=== PATIENT | female | born 1995 | race Caucasian/White ===

== ENCOUNTER 2016-02-24 23:31 | Observation (INO) | payer OTHER ==
[~2016-02-24] VITALS: Ht 160 cm; Wt 57.0 kg
[~2016-02-24 23:31] MED LIST: MESA1.2T2 PO; NORE-96 PO
[2016-02-25] VITALS (10 sets, daily range): BP systolic 86–134; BP diastolic 42–89; PULSE 92–134; RESP 16–24; O2SAT 97–100
[2016-02-25] MEDS ORDERED: Dexamethasone 4 mg/mL Inj ONE (01:18)
[2016-02-25] MEDS ORDERED: Ondansetron 2 mg/mL 2 mL Inj ONE (01:18)
[2016-02-25] MEDS ORDERED: fentaNYL-PF 50 mCg/mL 2 mL Inj ONE ×2 (01:18→21:20)
[2016-02-25] MEDS ORDERED: Propofol 10,000 mCg/mL 20 mL Inj ONE (01:18)
[2016-02-25] MEDS ORDERED: Ketamine 10 mg/mL 20 mL Inj ONE (01:18)
[2016-02-25] MEDS ORDERED: Ondansetron 2 mg/mL 2 mL Inj IVPUSH PRN ×3 (01:45→21:20)
[2016-02-25] MEDS: 0.9% Sodium Chloride 1,000 ML IV SCH ×4 (02:27→16:01)
[2016-02-25 03:26] LABS: APPEARANCE,URINE CLEAR (CLEAR,HAZY); COLOR,URINE YELLOW (YELLOW); OCCULT BLOOD,URINE TRACE (NEGATIVE); UROBILINOGEN,URINE NORMAL (NORMAL)
--- NOTE | 2016-02-25 05:51 | HP ---
[address] [address] HISTORY AND PHYSICAL PATIENT: LETY LIZAMA : 1995 MR#: [id number] ADMIT: 02/25/2016 JOB ID: [id number] DATE OF ADMISSION: 02/25/2016 PRIMARY CARE PROVIDER: Reema Crockett MD. CHIEF COMPLAINT: Fevers, right-sided mid abdominal pain. HISTORY OF PRESENT ILLNESS: This is a 20-year-old female, who presented to [facility] today with right mid to lower quadrant abdominal pain. She recently was diagnosed with a renal stone at [facility] ED, February 01. It was thought to be a 2 mm stone. She had been straining her urine since then, and had not found any. Currently she notes she was having some urinary urgency since that period of time, denied urinary frequency, denied dysuria. Saturday, she developed some abdominal pain. She had some mild nausea then, has had no nausea or vomiting since then, and today noticed a fever of 101.3 degrees and presented to the emergency department at [facility]. Her evaluation there includes a temperature of 37.6. She had a urine hCG which was negative. UA showed trace leukocyte esterase, trace protein, 1+ ketones, 1+ blood, WBCs 31-40, RBCs 4-5, bacteria 2+. White count was 10.3, BUN was 8, creatinine 0.73. Lactic acid was 0.7. She also was given 2 g of IV Rocephin in the emergency department there for possible pyelonephritis. She also had a CT of abdomen without contrast done on February 01, which revealed a small 2 x 4 mm stone in the distal right ureter, mild right hydronephrosis and hydroureter were noted, punctate calcifications renal hilar bilaterally consistent with tiny nonobstructive renal calculi. She today had a CT of abdomen and pelvis with IV contrast and this was read by Radiology as showing fluid collection in the right lower quadrant adjacent to the tip of the cecum in the expected region of right adnexa which has peripheral enhancement and internal air. Lesion is suspicious for either abscess related to a ruptured appendix or tubal ovarian abscess. There also appeared to be focal areas of striated enhancement in the right kidney suspicious for pyelonephritis. Dr. Ramos, ED doctor, [facility], contacted Dr. Wilson, General Surgery here at [facility], who recommended a pelvic ultrasound and transfer for further evaluation here to [facility]. PAST MEDICAL HISTORY: 1. History of ulcerative colitis, is followed by commodity supervisor, Dr. Jordan , out of [facility]. The patient has had no flares x1 year. 2. Recent diagnosis of distal right 2 mm ureteral stone. MEDICATIONS: Upon admission: 1. Lialda for ulcerative colitis. 2. control pills. 3. Hydrocodone 5/325, 1 tab p.o. q.6 h. p.r.n. pain. ALLERGIES: No known drug allergies. SOCIAL HISTORY: Smoking never. alcohol none. FAMILY MEDICAL HISTORY: No history of cardiac disease, GI disease. REVIEW OF SYSTEMS: All review of systems are reviewed and are negative except for as noted in HPI. Also patient has had normal bowel movements. PHYSICAL EXAMINATION: Temperature 37.1, heart rate 107, respiratory rate 18, blood pressure 106/72, room air sat 97%. Constitutional: Young woman, in mild pain and distress. Head: Normocephalic, atraumatic. Eyes: PERRLADC. EOMI. Mouth: No lesions. Neck: No adenopathy. Chest is clear to auscultation. Cor: Regular rate and rhythm. S1, S2 without murmur. Abdomen is soft. There is tenderness in the right upper to mid abdomen. No flank tenderness. Bowel sounds are present. Extremity exam reveals no pedal edema. Skin reveals no rashes. Psych: Mood and affect are appropriate. Neuro: Alert and oriented x3. Motor strength is intact bilaterally. LABORATORIES: As above. Also, to include and again these were done at [facility]: Sodium 137, potassium 3.7, chloride 102, bicarb 24, glucose 86, BUN 8, creatinine 0.73. Total protein 7.3, albumin 3.3, calcium 8.8, total bili 0.5, alkaline phosphatase 47, ALT 15, AST 13, lipase 167. Hematocrit 38.4, MCV 83.8, platelets 147 with 78% polys and 12% lymphs. ASSESSMENT AND PLAN: 1. Pyelonephritis,present on admit,acute. Continue with IV Rocephin. Await culture report. Did order a UA micro and culture if indicated here. We will also check blood cultures if has fevers. Morphine IV p.r.n. pain. 2. Abnormal CAT scan with finding of possible appendiceal disease versus tubo-ovarian abscess,present on admit,acute We will recheck blood counts in the a.m. Dr. Wilson, General Surgery, is aware of this patient. We will order abdominal and pelvic ultrasound. We will make n.p.o. except meds in case surgical procedure is planned. 3. History of ulcerative colitis,present on admit,chronic Currently appears quiescent at this point in time. We will continue patient's medication. 4. Deep venous thrombosis prophylaxis, SCDs. CODE STATUS: The patient is FULL CODE. TIME SPENT: 60 minutes. [facility]
--- NOTE | 2016-02-25 06:45 | NUR ---
Admit Admitted from [facility] via EMS. Able to ambulate on arrival. RA without SOB. Denies CP or discomfort. NPO but denies issues with PO intake other than decreased appetite over last couple of days. Denies issues with voiding or bowel movements with last BM reported on 02/23. 07/04 RLQ abd pain reported which she states is worse with touch and activity. Offered prn pain rx but patient states pain is tolerable currently. NS @ 150ml/hr initiated per orders. Personal belongings at bedside per patient request. Educated flight operation coordinator light use with return demonstration.
[2016-02-25] MEDS: cefTRIAXone Inj 2,000 MG in IV Premix 1 EACH IV SCH (08:20)
[2016-02-25 08:23] LABS: BASOPHILS % (AUTO) 0.1 % (0-3); EOSINOPHILS % (AUTO) 0.6 % (0-5); MONOCYTES % (AUTO) 12.6 % (4-12); Mean Corpuscular Hemoglobin 27.4 pg (27.0-35.0); Mean Corpuscular Volume 85.6 fL (81-100); NEUTROPHILS % (AUTO) 71.2 % (40-74); Platelet Count 139 bil/L (150-400)
--- NOTE | 2016-02-25 10:15 | DRSVH ---
PROCEDURE: US ABDOMEN ([id number]) INDICATIONS: 20 year-old female with right abdominal pain. TECHNIQUE: Real-time scanning was performed of the abdominal and retroperitoneal organs, with image documentatio n. COMPARISON: [facility], CT, CT ABDOMEN PELVIS W CONTRAST, 02/24/2016, 9:32 PM. [facility], CT, CT ABDOMEN PELVIS WO CONTRAST, 02/02/2016, 1:24 PM. FINDINGS: Liver: Liver is normal in size and homogeneous in echotexture. Gallbladder: No gallstones or biliary sludge. Gallbladder wall thickness is normal. No pericholecyst ic fluid. Biliary ducts: Intrahepatic bile ducts are non-dilated. Extrahepatic bile duct caliber measures 2.7 mm. Normal is 6-7 mm or less in diameter, or 10 mm or less post-cholecystectomy. Pancreas: Visualized portions of the pancreas are sonographically normal. Spleen: Spleen is upper normal in size and homogeneous in echotexture. Kidneys: Kidneys are normal in size and echotexture. Right kidney measures 10.5 cm long; left kidne y measures 10.4 cm long. No hydronephrosis or nephrolithiasis. No solid masses. Aorta: Visualized aorta is normal in caliber at less than 3 cm. Iliacs: Proximal common iliac arteries are normal in caliber at less than 2.5 cm. IVC: Intrahepatic inferior vena cava is patent. Miscellaneous: No free abdominal fluid. The appendix appears normal in size and morphology transabdo minally. The appendix is unable to be visualized. IMPRESSION: No sonographic explanation for abdominal pain. The ovary appears normal in size, and ther efore tubo-ovarian abscess is considered unlikely. Dictated by: Loc Barkley M.D. on 02/25/2016 at 10:13 Approved by: Loc Barkley M.D. on 02/25/2016 at 10:13
--- NOTE | 2016-02-25 16:58 | CONS ---
[address] [address] CONSULTATION REPORT PATIENT: LETY LIZAMA : 1995 MR#: [id number] ADMIT: 02/25/2016 JOB ID: [id number] DATE OF SERVICE: 02/25/2016 CHIEF COMPLAINT: Abdominal pain. REQUESTING PHYSICIAN: This consultation was requested by Dr. Jimenez. HISTORY OF PRESENT ILLNESS: This is a 20-year-old woman who presented to the emergency department in [place] last night. She has a recent history of kidney stones on the right. A CT scan of the abdomen was performed showing findings consistent with right-sided pyelonephritis, and also a 5 x 2 cm fluid collection near the ovary and cecum. The appendix was not easily visualized and the fluid collection was thought to be either due to appendicitis or to a tubo-ovarian abscess. She was transferred to this facility. An abdominal ultrasound was ordered to help clarify the question of whether it was associated with the ovary, but this appeared normal, and therefore tubo-ovarian abscess was considered unlikely. White blood cell count was normal at [place] and was 9.3 on admission to this facility. She was given a dose of ceftriaxone this morning. I was asked to evaluate her for possible appendicitis. PAST MEDICAL HISTORY: 1. Ulcerative colitis, well controlled on Lialda which is prescribed by Dr. Renteria of gastroenterology. 2. Recent diagnosis of a distal right 2 mm ureteral stone. PAST SURGICAL HISTORY: None. MEDICATIONS: Lialda and control. ALLERGIES: No known drug allergies. FAMILY HISTORY: No history of cardiac disease. SOCIAL HISTORY: She has never been a smoker and does not drink alcohol. REVIEW OF SYSTEMS: Eleven point review of systems is negative except as noted in the HPI. PHYSICAL EXAMINATION: Vital signs: Temperature 36.5, heart rate 96, blood pressure 106/70, saturation 100% on room air, respiratory rate of 18. General: Awake, alert. No acute distress. Head: Normocephalic. Neck: Supple. Cardiac: Regular rate and rhythm. No murmurs, rubs, or gallops. Respiratory: Clear auscultation bilaterally. Abdomen: Soft. Tender in the right lower quadrant upon palpation of McBurney's point. Mild tenderness in the right upper quadrant. There is no costophrenic angle tenderness bilaterally. No rebound or guarding. Her abdomen is flat. Extremities: No edema. Psychiatric: Normal cognition and judgment. LABORATORY: White blood cell count is 9.3, hematocrit 34, platelets 159. Comprehensive metabolic panel is within normal limits with the exception of an albumin of 2.9. ASSESSMENT: A 20-year-old woman with a right lower quadrant fluid collection near the probable location of the appendix, most consistent with appendicitis on overall clinical picture based on a combination of findings on physical exam, CT scan, ultrasound, and physical examination. RECOMMENDATIONS: I recommend laparoscopic appendectomy. I consented the patient to the risks including infection, bleeding, injury to surrounding structures, and negative appendectomy; i.e., the possibility that appendicitis is not the cause of the findings seen on CT scan. She understands all of the above and elects to proceed.
[2016-02-25] MEDS ORDERED: Lactated Ringer's 1,000 ML IV ONE (17:30)
--- NOTE | 2016-02-25 17:31 | PCM.HPANE ---
Patient Data Surgeon Admitting Provider:Mary Jimenez MD Attending Provider:Mary Jimenez MD Primary Care Physician:Reema Crockett MD Other Provider:Hair Jalloh Anesthesia Reason for Visit Pyelonephritis, Rule Out Appy Ht/WT & BMI Height (Feet): 5 Height (Inches): 3.00 Weight (Kilograms): 57.300 Body Mass Index 22.38 Allergies Coded Allergies: No Known Drug Allergies (Verified Allergy, 02/10/13) Past Anesthesia History Anesthesia History: Denies:: Abnormal Airway, Anesthesia Reactions, Difficult Intubation, Fam Anesthesia Reaction, Fam Malignant Hypertherm, Malignant Hyperthermia Diabetes History Hx Diabetes?: No MRSA MRSA: No Medications Hypertension Medication: No Home Meds Incl Beta Darrin: No Reported Medications Norethindrone A-E Estradiol (Loestrin)1 Each Tablet1 Each PO DAILY #1 PKG Ref 0 03/08/15 Mesalamine (Lialda)1.2 Gm Tablet.dr1.2 Gm PO DAILY 2 tabs daily with a meal 03/08/15 History History of ENT Problems?: No HEENT History: Denies:: Abnormal Airway Difficult Intubation Dysphagia Hearing Problem Hx of Heart Problems?: No Cardiovascular History: Denies:: AICD Atrial Fibrillation Chest Pain Hypertension Pacemaker Valvular Heart Disease Hx of Respiratory Problem?: No Respiratory History: Denies:: Asthma COPD Cough Hemoptysis Pneumonia Tuberculosis Hx Neurologic Problems?: No Neurological History: Denies:: CVA Hx of GI Problems?: Yes Gastrointestinal History: Positive for:: Rectal Bleeding Denies:: Cirrhosis Diverticulitis Gastroesphageal Reflux Hiatal Hernia Other GI Pertinent History: Ulcerative colitis Hx of Problems?: Yes Genitourinary History: Positive for:: Kidney Stones Urinary Tract Infection Denies:: HX of Hemodialysis HX of Peritoneal Dialysis: No Female Hx: Denies:: Currently Endometriosis Pelvic Inflammatory Problems with Breasts? Hx Musculoskeletal Problems?: No Musculoskeletal History: Denies:: Joint Replacement Hx of Psycho/Social Problems?: No Psycho Social History: Denies:: Anxiety Hx Depression Hx Surgeries?: No Hx Any Other Health Problems?: No History Blood Transfusions: Positive for:: Accept Blood Products? Denies:: Blood Transfusions Hx Diabetes: No Hx Alcohol Use: NoHx Substance Use: No Smoking Status: Never Smoker Stop/Bang Treated for Sleep Apnea?: No Do You Have a CPAP Machine?: No S-Snoring: Do You Snore Loudly: No T-Tired: feel tired, fatigued: No O-Obsered: Observed not breath: No P-Blood Pressure: treated: No B- Body Mass Index > 35 kg/m2: No A- Age over 50: No N- Neck Large Circumference: No G- Gender Male: No MARTA Total Score: 0 MARTA Risk Assessment: Low Risk, <3 Yes Risk Assessment Category Category 1A: Patient has history of documented sleep apnea, and HAS NOT received any narcotic, sedative or anesthesia administration during this stay. Category 1B: Patient has history of documented sleep apnea, and HAS received any narcotic , sedative or anesthesia administration during this stay Category 2: Patient has SUSPECTED Obstructive Sleep Apnea, and HAS received any narcotic , sedative or anesthesia administration during this stay. Category 3: Patient has SUSPECTED Obstructive Sleep Apnea and HAS NOT received narcotic, sedative or anesthesia administration during this stay. Category 4: Outpatient in Procedural Areas with known sleep apnea or who screen positive for High Risk via the STOP/BANG questionnaire. Exam Exam Vital Signs Vital Signs Date Time Temp Pulse Resp B/P Pulse Ox O2 Delivery O2 Flow Rate FiO2 02/25/16 15:06 36.5 96 18 106/70 100 Room Air 02/25/16 09:51 36.7 92 86/42 General Appearance: Alert, Oriented X3, Cooperative, No Acute Distress HEENT/AIRWAY: MP 2 Lungs: Clear to Auscultation, Normal Air Movement Heart: Exam Unremarkable, Regular Rate/Rhythm, No Murmurs/Rubs/Gallops Meds/Labs/Diagnostics Admission Meds Current Medications Sodium Chloride 1,000 ml @ 150 mls/hr Q6H40M IV Last administered on at 16:01; Start 02/25/16 at 01:43 Ceftriaxone Sodium/Dextrose/ Premix (Rocephin Inj/IV Premix) 50 ml @ 100 mls/ hr Q24 IV Last administered on 02/25/16at 08:20; Start 02/25/16 at 08:30 Labs Test 02/25/16 02:10 02/25/16 07:03 Urine Color Yellow (YELLOW) Urine Appearance Clear (CLEAR,HAZY) Urine pH 6.0 (5.0-8.0) Urine Specific Wilson 1.010 (1.003-1.035) Urine Protein Negativemg/dL (NEG,TRACE) Urine Glucose (UA) Negativemg/dL (NEGATIVE) Urine Ketones 40mg/dL (NEGATIVE) Urine Occult Blood Trace (NEGATIVE) Urine Nitrite Negative (NEGATIVE) Urine Bilirubin Negative (NEGATIVE) Urine Urobilinogen Normalmg/dL (NORMAL) Urine Leukocyte Esterase Negative (NEGATIVE) Urine RBC 3-10/hpf (0-2) Urine WBC 6-10/hpf (0-5) Urine Epithelial Cells Few/hpf (NONE-MOD) Urine Crystals None seen (NONE SEEN) Urine Bacteria Moderate/hpf (NONE-FEW) Urine Hyaline Casts None/lpf (NONE) Urine Granular Casts None seen (NONE SEEN) Urine Waxy Casts None seen (NONE SEEN) Urine Red Blood Cell Casts None seen (NONE SEEN) Urine White Blood Cell Casts None seen (NONE SEEN) Urine Mucus None seen (None Seen) Urine Trichomonas None seen (NONE SEEN) Urine Yeast None (NONE SEEN) Urine Culture Reflexed Indicated White Blood Count 9.3th/mm3 (3.8-10.1) Red Blood Count 4.02mil/mm3 (3.90-5.20) Hemoglobin 11.0g/dL (12.0-15.6) Hematocrit 34.4% (35.0-46.0) Mean Corpuscular Volume 85.6fL (81-100) Mean Corpuscular Hemoglobin 27.4pg (27.0-35.0) Mean Corpuscular Hemoglobin Concent 32.0% (32.0-37.0) Red Cell Distribution Width 14.2% (12.3-15.4) Platelet Count 139bil/L (150-400) Neutrophils (%) (Auto) 71.2% (40-74) Lymphocytes (%) (Auto) 15.4% (14-46) Monocytes (%) (Auto) 12.6% (4-12) Eosinophils (%) (Auto) 0.6% (0-5) Basophils (%) (Auto) 0.1% (0-3) Sodium Level 136mEq/L (134-144) Potassium Level 3.7mEq/L (3.5-5.2) Chloride Level 102mEq/L (97-108) Carbon Dioxide Level 18mmol/L (18-29) Blood Urea Nitrogen 9mg/dL (6-20) Creatinine 0.63mg/dL (0.57-1.00) Estimat Glomerular Filtration Rate 169mL/min (>59) Glucose Level 64mg/dL (60-99) Calcium Level 8.0mg/dL (8.5-10.1) Total Bilirubin 0.3mg/dL (0.0-1.2) Aspartate Amino Transf (AST/SGOT) 12U/L (0-50) Alanine Aminotransferase (ALT/SGPT) 7U/L (0-32) Alkaline Phosphatase 46U/L (25-150) Total Protein 5.9g/dL (6.4-8.4) Albumin 2.9g/dL (3.4-5.0) Plan Impression Patient chart reviewed, patient interviewed and anesthestic plan with risks, benefits, and alternatives discussed, and informed consent obtained. ASA Physical Status: ASA1 Plus Emergency Anesthetic Plan: GA Bene/Risks/Altern/Consents: Yes HP Complete Prior to Induction: Yes Messi Pandya MD Feb 25, 2016 17:31
--- NOTE | 2016-02-25 17:58 | NUR ---
Pain / Activity Pt has RLQ pain that is 5/10, but she declines IVP pain medication. Pt does not appear to be in any distress, and reports her pain is much less compared to what it was last night. Pt remains NPO pending surgery. Pt has been up independently in her room to use the bathroom and voiding without any problems. Care continues.
--- NOTE | 2016-02-25 19:27 | NUR ---
off the floor for surgery
[2016-02-25] MEDS ORDERED: Bupivacaine-MPF 0.5% W/EPI 30 mL Inj INFILTRATE ONE (20:18)
[2016-02-25] MEDS ORDERED: Sodium Chloride LOK Flush 10 mL Syringe IVFLUSH PRN (21:05)
--- NOTE | 2016-02-25 21:08 | PCM.SURGOP ---
Surgical Operative Report Date of Service: Feb 25, 2016 Pre Operative Diagnosis Acute appendicitis Post Operative Diagnosis Acute appendicitis Procedure: Laparoscopic appendectomy Surgeon and Crossbar Switch Adjuster: Surgeon: Lyndsay Iyer M.D. Assistants: Megan Giron PA-C A surgical tech was necessary for retraction and dissection Indication for Procedure This is a 20-year-old woman who presented with abdominal pain to the emergency department in [place] and on CT scan was found to have a right lower quadrant pelvic fluid collection worrisome either for appendicitis or tubo- ovarian abscess. She also has a recent history of kidney stones and had findings worrisome for pyelonephritis on CT scan. An ultrasound was performed showing a normal right ovary. She had a typical history for appendicitis including tenderness at McBurney's point, which she defined as distinct from her pain she expressed from nephrolithiasis, which had previously been in the flank. Due to the overall clinical picture including findings on CT scan, she was scheduled for laparoscopic appendectomy. Findings: 1. Trace inflammation of the tip of the appendix. 2. Small amount of benign-appearing free fluid in the abdomen. 3. Normal-appearing ovaries and fallopian tubes. Procedure Details The patient was brought to the operating room and placed in supine position. General endotracheal anesthesia was smoothly induced. Antibiotics had been infused previously in the emergency department. A warming blanket and SCDs were placed. The operative field was prepped and draped in sterile fashion. A Aldana had been placed. A pause was performed to confirm the correct patient, procedure, and site. The abdomen was entered using an infraumbilical transverse incision with a 12 mm Deniz port under direct vision. Two additional 5 mm ports were placed in the midline, one in the lower abdomen and one at a suprapubic site. The appendix was then identified and retracted cephalad. The tip was inflamed and the base appeared normal. A window was made at the base of the appendix and a 35 mm blue load Endo-VERA stapler was fired to resect the entire appendix from the cecum. Prior to firing the stapler, the entire cecum and terminal ileum were identified to confirm that no narrowing would occur to the lumen of either. Electrocautery was used to divide the mesoappendix. There was no bleeding. The appendix was removed using an EndoCatch bag via the infraumbilical port site. The abdomen was inspected and there was no pus, murky fluid, or bleeding. The 5 mm ports were removed. The infraumbilical port site was closed with an 0 Vicryl [id number] stitch. 0.5% Marcaine with epinephrine was injected into the fascia at the infraumbilical port site and into the skin at all port sites. The skin was closed with 4-0 Monocryl and sterile dressings were applied. The patient was awakened from general anesthesia and taken to the postoperative care unit in good condition. Complications There were no periprocedural complications identified. Surgical Specimen Removed: Yes Specimen sent to Pathology: Yes Surgical Specimen description: Appendix Anesthetic Plan: GA Grafts, Implants: None Output, Estimated Blood Loss: 1 (ml) Blood Administration during yoder: No Lyndsay Iyer MD Feb 25, 2016 21:08
[2016-02-25] MEDS ORDERED: Lactated Ringer's 1,000 ML IV SCH (21:16)
[2016-02-25] MEDS ORDERED: Lactated Ringer's 500 ML IV PRN (21:16)
[2016-02-25] MEDS ORDERED: MetoCLOpramide 5 mg/mL 2 mL Inj IVPUSH PRN (21:20)
[2016-02-25] MEDS ORDERED: Phenylephrine 10,000 mCg/mL Inj IVPUSH PRN (21:20)
[2016-02-25] MEDS ORDERED: Dexamethasone 4 mg/mL Inj IVPUSH PRN (21:20)
[2016-02-25] MEDS ORDERED: EPHEDrine Sulfate 50 mg/mL Inj IVPUSH PRN (21:20)
[2016-02-25] MEDS ORDERED: HYDROmorphone 1 mg/mL Inj IVPUSH PRN (21:20)
[2016-02-25] MEDS ORDERED: fentaNYL-PF 50 mCg/mL 2 mL Inj IVPUSH PRN (21:20)
--- NOTE | 2016-02-25 21:22 | PCM.PNMED ---
Subjective Date of Service Feb 25, 2016 Subjective I was called to see this patient as they patient and her mother were wondering what the plan was. Sign out I received enteral surgery had accepted from [facility], medicine had admitted, they were evaluating pyelonephritis versus appendicitis. When I saw the patient her pain was better, she was wanting to eat. So abdominal pain and resolved as had not any nausea or vomiting. No chest pain or dyspnea Exam Vital Signs Vital Sign - Last Date Time Temp Pulse Resp B/P Pulse Ox O2 Delivery O2 Flow Rate FiO2 02/25/16 15:06 36.5 96 18 106/70 100 Room Air Intake and Output 02/24/16 02/24/16 02/25/16 Cumulative From/Thru 15:00 23:00 07:00 02/25/16 01:34 - 02/25/16 05:15 Intake Total 0 ml 0 ml Output Total 200 ml 200 ml Balance -200 ml -200 ml Intake Oral 0 ml 0 ml Output Urine Total 200 ml 200 ml Exam Gen.: Thin female lying in bed comfortably Eyes: Open, conjunctiva clear/ nonicteric HEENT: Normal nose, normal ears Neck: Trachea midline supple CVS: RRR no murmur or gallop Pulmonary: CTA,Normal rate, no accessory muscle usage or evidence of respiratory distress GI: NABS/NT no rebound or guarding Musculoskeletal: Extremities moving 4 no obvious defects Neuro: From nerves II through XII intact to gross examination, and nonfocal Skin: Warm and dry Psych: Patient pleasant and appropriate Lab and Diagnostics Result Diagram: 02/25/16 0703 02/25/16 07 Assessment & Plan 20-year-old female reportedly accepted by general surgery in the middle of the night from [facility] for surgical evaluation. History and physical was completed about 6:30 AM with the indication that surgery was consulting in the morning to evaluate for possible surgical intervention. I received a phone call around noon that the patient and her mother were wondering her she could eat if she was not having surgery. I called surgery and found that the day surgeon was unaware that there was an expectation that she would be seeing the patient as she had not received the CT scan. I as rapidly as I could evaluated the ultrasound findings and spoke with the radiologist but could not access the images so I went to see the patient who clinically looked all right. I believe that some of her symptoms have dissipated as she was being treated with Rocephin for potential pyelonephritis (despite totally normal urinalysis), I have no access to CT scan findings or urine at that point in time. If there was any question I was ready to order another CT of her abdomen and pelvis to evaluate the appendiceal area where there was fluid according to the report I was told about by Dr. Barkley the radiologist diamond die maker. I again spoke with the on- call surgeon who agreed to review the films with the radiologist and go see the patient. She was taken to the OR for upper scapular appendectomy later in the day.I spent greater than 60 minutes sorting out this confusion for nonmedical issues. Time spent >60min Taco Patel MD Feb 25, 2016 21:22
[2016-02-25] MEDS: Dextrose 5% Lactated Ringer's 1,000 ML IV SCH (22:13)
--- NOTE | 2016-02-25 22:28 | NUR ---
post-op note: pt. on room air, c/o pain /, tearful. pt. given 1mg iv morphine, effective for pain. 3 umbilical bandaid dressings cdi,
[2016-02-26] MEDS: Heparin 5,000 Unit/mL Inj SUBQ SCH ×2 (00:12→08:21)
[2016-02-26] MEDS: 0.9% Sodium Chloride 1,000 ML IV SCH ×2 (01:31→08:23)
[2016-02-26 01:44] VITALS: BP 106/70; PULSE 77; RESP 16; O2SAT 97
[2016-02-26 03:40] LABS: BASOPHILS % (AUTO) 0 % (0-3); EOSINOPHILS % (AUTO) 0.2 % (0-5); MONOCYTES % (AUTO) 3.7 % (4-12); Mean Corpuscular Hemoglobin 27.3 pg (27.0-35.0); Mean Corpuscular Volume 85.9 fL (81-100); NEUTROPHILS % (AUTO) 85.8 % (40-74); Platelet Count 148 bil/L (150-400)
--- NOTE | 2016-02-26 05:15 | NUR ---
pain: pt.'s pain well controlled on 5mg roxicodone
[2016-02-26] MEDS: cefTRIAXone Inj 2,000 MG in IV Premix 1 EACH IV SCH (08:21)
[2016-02-26] MEDS: Dextrose 5% Lactated Ringer's 1,000 ML IV SCH (08:23)
--- NOTE | 2016-02-26 08:43 | PCM.PNSURG ---
Subjective Visit Information: Reason for Visit Pyelonephritis, Rule Out Appy Surgery/Surgery Date LAP APPY 02/25/16 Post-Op Day # Date of Admission: Feb 25, 2016 at 01:17 Hospital Day # Subjective: Tachycardia overnight, likely due to pain. c/o pain at incisions this am. No N /V. Objective Vital Sign- Last 8 Hours Date Time Temp Pulse Resp B/P Pulse Ox O2 Delivery O2 Flow Rate FiO2 02/26/16 01:44 36.6 77 16 106/70 97 Room Air Intake and Output- Last 8 Hour 02/26/16 Cumulative From/Thru 07:00 02/25/16 01:34 - 02/26/16 06:56 Intake Total 959 ml 3932 ml Output Total 1150 ml 2201 ml Balance -191 ml 1731 ml Intake Oral 200 ml 200 ml IV Total 759 ml 3732 ml Output Urine Total 1150 ml 2200 ml Estimated Blood Loss 1 ml # Voids 5 5 # Bowel Movements 0 1 General: Alert, Cooperative, Mild Distress Abdomen: Soft, Appropriately tender, Non-distended Result Diagram: 02/26/16 0325 02/26/16 0325 Assessment & Plan Impression POD#1 laparoscopic appendectomy. She had trace evidence of appendicitis at the tip. No perforation. Free fluid was benign/serous. Ovaries/tubes/uterus appeared normal intraoperatively. Problems: Plan OK to advance diet. Oral pain control. OK to discharge from surgical perspective if she can tolerate PO liquids and enteral pain control, pending primary team assessment of concomitant pyelonephritis. No antibiotics are needed at this time for appendicitis because it was not ruptured. Lyndsay Iyer MD Feb 26, 2016 08:43
--- NOTE | 2016-02-26 10:49 | PCM.DIMED ---
Discharge Instructions Date of Service Feb 26, 2016 Dates of Hospitalization Feb 25, 2016 at 01:17 Discharge Diagnosis Discharge Diagnosis - Acute appendicitis Patient Instructions Follow-up with PCP in: 2 weeks Cesario Diaz MD Feb 26, 2016 10:49
[2016-02-26] MEDS ORDERED: SULF1TAB34 PO (10:50)
--- NOTE | 2016-02-26 11:02 | PCM.DC.MED ---
Discharge Summary Date of Service Feb 26, 2016 Dates of Hospitalization Date of Hospital Admission Feb 25, 2016 at 01:17 Date of Discharge: Feb 26, 2016 Providers: Admitting Physician: Mary Jimenez MD Primary Care Physician: Reema Crockett MD Attending Physician: Mary Jimenez MD Diagnosis at Time of Discharge Diagnosis at Time of Discharge - Acute appendicitis Procedures XRay, CTs & MRIs - US Abdomen: FINDINGS: Liver: Liver is normal in size and homogeneous in echotexture. Gallbladder: No gallstones or biliary sludge. Gallbladder wall thickness is normal. No pericholecystic fluid. Biliary ducts: Intrahepatic bile ducts are non-dilated. Extrahepatic bile duct caliber measures 2.7 mm. Normal is 6-7 mm or less in diameter, or 10 mm or less post-cholecystectomy. Pancreas: Visualized portions of the pancreas are sonographically normal. Spleen: Spleen is upper normal in size and homogeneous in echotexture. Kidneys: Kidneys are normal in size and echotexture. Right kidney measures 10.5 cm long; left kidney measures 10.4 cm long. No hydronephrosis or nephrolithiasis. No solid masses. Aorta: Visualized aorta is normal in caliber at less than 3 cm. Iliacs: Proximal common iliac arteries are normal in caliber at less than 2.5 cm. IVC: Intrahepatic inferior vena cava is patent. Miscellaneous: No free abdominal fluid. The appendix appears normal in size and morphology transabdominally. The appendix is unable to be visualized. IMPRESSION: No sonographic explanation for abdominal pain. The ovary appears normal in size, and therefore tubo-ovarian abscess is considered unlikely. Brief History 20-year-old female, who presented to [facility] today with right mid to lower quadrant abdominal pain. She recently was diagnosed with a renal stone at [facility] ED, February 01. It was thought to be a 2 mm stone. She had been straining her urine since then, and had not found any. Currently she notes she was having some urinary urgency since that period of time, denied urinary frequency, denied dysuria. Saturday, she developed some abdominal pain. She had some mild nausea then, has had no nausea or vomiting since then, and today noticed a fever of 101.3 degrees and presented to the emergency department at [facility]. Her evaluation there includes a temperature of 37.6. She had a urine hCG which was negative. UA showed trace leukocyte esterase, trace protein, 1+ ketones, 1+ blood, WBCs 31-40, RBCs 4-5, bacteria 2+. White count was 10.3, BUN was 8, creatinine 0.73. Lactic acid was 0.7. She also was given 2 g of IV Rocephin in the emergency department there for possible pyelonephritis. She also had a CT of abdomen without contrast done on February 01, which revealed a small 2 x 4 mm stone in the distal right ureter, mild right hydronephrosis and hydroureter were noted, punctate calcifications renal hilar bilaterally consistent with tiny nonobstructive renal calculi. She today had a CT of abdomen and pelvis with IV contrast and this was read by Radiology as showing fluid collection in the right lower quadrant adjacent to the tip of the cecum in the expected region of right adnexa which has peripheral enhancement and internal air. Lesion is suspicious for either abscess related to a ruptured appendix or tubal ovarian abscess. There also appeared to be focal areas of striated enhancement in the right kidney suspicious for pyelonephritis. Dr. Ramos, ED doctor, [facility], contacted Dr. Wilson, General Surgery here at [facility], who recommended a pelvic ultrasound and transfer for further evaluation here to [facility]. Hospital Course Pyelonephritis,present on admit,acute. - received iv Rocephin in hospital. - Urine culture: negative - Will complete 5 days course of antibiotics. Abnormal CAT scan with finding of possible appendiceal disease versus tubo- ovarian abscess,present on admit,acute - s/p laparoscopic appendectomy Exam Vital Signs (Last) Date Time Temp Pulse Resp B/P Pulse Ox O2 Delivery O2 Flow Rate FiO2 02/26/16 01:44 36.6 77 16 106/70 97 Room Air Exam Gen.: Thin female lying in bed comfortably Eyes: Open, conjunctiva clear/ nonicteric HEENT: Normal nose, normal ears Neck: Trachea midline supple CVS: RRR no murmur or gallop Pulmonary: CTA,Normal rate, no accessory muscle usage or evidence of respiratory distress GI: NABS/NT no rebound or guarding Musculoskeletal: Extremities moving 4 no obvious defects Neuro: From nerves II through XII intact to gross examination, and nonfocal Skin: Warm and dry Psych: Patient pleasant and appropriate Test 02/25/16 02:10 02/26/16 03:25 Urine Color Yellow (YELLOW) Urine Appearance Clear (CLEAR,HAZY) Urine pH 6.0 (5.0-8.0) Urine Specific Bartlett 1.010 (1.003-1.035) Urine Protein Negativemg/dL (NEG,TRACE) Urine Glucose (UA) Negativemg/dL (NEGATIVE) Urine Ketones 40mg/dL (NEGATIVE) Urine Occult Blood Trace (NEGATIVE) Urine Nitrite Negative (NEGATIVE) Urine Bilirubin Negative (NEGATIVE) Urine Urobilinogen Normalmg/dL (NORMAL) Urine Leukocyte Esterase Negative (NEGATIVE) Urine RBC 3-10/hpf (0-2) Urine WBC 6-10/hpf (0-5) Urine Epithelial Cells Few/hpf (NONE-MOD) Urine Crystals None seen (NONE SEEN) Urine Bacteria Moderate/hpf (NONE-FEW) Urine Hyaline Casts None/lpf (NONE) Urine Granular Casts None seen (NONE SEEN) Urine Waxy Casts None seen (NONE SEEN) Urine Red Blood Cell Casts None seen (NONE SEEN) Urine White Blood Cell Casts None seen (NONE SEEN) Urine Mucus None seen (None Seen) Urine Trichomonas None seen (NONE SEEN) Urine Yeast None (NONE SEEN) Urine Culture Reflexed Indicated White Blood Count 5.1th/mm3 (3.8-10.1) Red Blood Count 4.03mil/mm3 (3.90-5.20) Hemoglobin 11.0g/dL (12.0-15.6) Hematocrit 34.6% (35.0-46.0) Mean Corpuscular Volume 85.9fL (81-100) Mean Corpuscular Hemoglobin 27.3pg (27.0-35.0) Mean Corpuscular Hemoglobin Concent 31.8% (32.0-37.0) Red Cell Distribution Width 14.0% (12.3-15.4) Platelet Count 148bil/L (150-400) Neutrophils (%) (Auto) 85.8% (40-74) Lymphocytes (%) (Auto) 10.3% (14-46) Monocytes (%) (Auto) 3.7% (4-12) Eosinophils (%) (Auto) 0.2% (0-5) Basophils (%) (Auto) 0% (0-3) Sodium Level 138mEq/L (134-144) Potassium Level 4.6mEq/L (3.5-5.2) Chloride Level 105mEq/L (97-108) Carbon Dioxide Level 22mmol/L (18-29) Blood Urea Nitrogen 6mg/dL (6-20) Creatinine 0.51mg/dL (0.57-1.00) Estimat Glomerular Filtration Rate 216mL/min (>59) Glucose Level 170mg/dL (60-99) Calcium Level 8.2mg/dL (8.5-10.1) Total Bilirubin 0.2mg/dL (0.0-1.2) Aspartate Amino Transf (AST/SGOT) 14U/L (0-50) Alanine Aminotransferase (ALT/SGPT) 7U/L (0-32) Alkaline Phosphatase 41U/L (25-150) Total Protein 6.1g/dL (6.4-8.4) Albumin 3.0g/dL (3.4-5.0) Discharge Medications Discharge Medications Mesalamine (Lialda) 1.2 Gm Tablet.dr 1.2 GM PO DAILY (Reported) 2 tabs daily with a meal Norethindrone A-E Estradiol (Loestrin) 1 Each Tablet 1 EACH PO DAILY (Reported) Sulfamethoxazole/Trimeth 400-80 mg (Bactrim 400-80 mg) 1 Each Tablet 1 TABLET PO BID Prescribed by: CESARIO MCKAY MD Followup Plan Follow-up with PCP in: 2 weeks Cesario Mckay MD Feb 26, 2016 11:02
--- NOTE | 2016-02-26 13:33 | NUR ---
Social Work Note: Screen Note/ Discharge Data& Assessment: EMR reviewed. Per pt is medically ready for discharge. Luciana Grossman is a 20 year old female admitted on 02/25/2016 for pylonephritis. Per pt is medically improved and ready for discharge. Pt has [employer] out of state insurance coverage and sees Reema Crockett MD for primary care. Pt lives in [place] and is independent at baseline. No discharge needs identified. SW to continue to follow if any needs should arise. Plan: Per pt is medically ready to discharge home via POV. No discharge needs identified. SW to continue to follow if any needs arise. ANCA Jimenez
--- NOTE | 2016-02-26 15:20 | NUR ---
Discharge Pt was discharged from [facility] room 1019 at 1450 via private vehicle with family. Antibiotic RX was phoned into [facility]. IV d/c'd intact. Pain under control and tolerating foods with no nausea. All discharge teaching and instructions done with family at bedside. Hard copy of RX is with pt. No items in the safe or pharmacy.
--- NOTE | 2016-02-28 14:38 | PCM.ANEP2 ---
Post Anesthesia Evaluation ASA/CMS Post Anesthesia VS in Patient's Normal Range?: Yes Resp Stable; Airway Patent?: Yes CV Function & Hydration Stable: Yes Mental Status Recovered?: Yes Pain control Satisfactory?: Yes N/V Control Satisfactory?: Yes Messi Pandya MD Feb 28, 2016 14:38
--- NOTE | 2016-02-28 14:38 | PCM.ANEP1 ---
Post Anesthesia Phase 1 PACU Phase 1 Assessment Date of Service: Feb 25, 2016 Anesthetic Administered: GA Level of Alertness: Awake, talking ESTRELLA's with Equal Strength: Yes Pain: Yes Pain Scale Score: 6 Nausea or Vomiting: No Oxygen Delivery: Simple Mask Lungs: Clear to Auscultation, Normal Air Movement Dermatome Level: Full Sensation Messi Pandya MD Feb 28, 2016 14:38
--- NOTE | 2016-03-01 10:31 | PATH ---
SURGICAL PATHOLOGY Attending Physician:Lyndsay Iyer MD CASE STATUS: Signed Out PATIENT NAME: LETY LIZAMA PID: [id number] : 1995 CASE NUMBER: [id number] DATE COLLECTED:02/25/2016 00:00 SPECIMEN: Appendix CLINICAL HISTORY: A: APPENDIX FINAL DIAGNOSIS: 1.APPENDIX: VERMIFORM APPENDIX WITH NO DIAGNOSTIC ALTERATIONS. Negative for inflammation, dysplasia and malignancy. ICD10 code R10.9 GROSS DESCRIPTION: The specimen is received in one formalin filled container labeled with the patient's name, sublabeled "appendix" and consists of one cylindrical wang appendix measuring 6.0 x 0.7 x 0.7 CM. The serosal surface is smooth. There is a small amount of attached fatty tissue. Sections reveal the wall to be 0.3 CM in thickness. In the central portion of the lumen is a light wang-brown creamy substance. 3 billing customer service representative sections are submitted in one cassette. 02/29/2016 DAC MICRO DESCRIPTION: See diagnosis. ICD-9 CODES: CPT CODES: 1: 48756 Electronically Signed Out Patricia Pierre MD [facility] [address], [place] [address] Technical component performed at [facility], [facility] [address], [place], [address]
== END 2016-02-26 14:54 | disposition home or self-care (01) ==
LOC: INTOOBSV 02-25 01:17 → OSC 02-25 01:17
PROVIDERS: ADMIT Specialist; ATTEND Specialist
DX: K35.80 Unspecified acute appendicitis (principal); N20.0 Calculus of kidney; K51.90 Ulcerative colitis, unspecified, without complications
CPT/HCPCS: 36415; 44970; 76700; 80053; 81000; 85025; 87086; J0690; J0696; J1100; J1644; J2175; J2270; J2405; J7030; J7120